=== PATIENT | female | born 1950 | race Caucasian/White ===

== ENCOUNTER 2017-02-16 06:50 | Observation (INO) | payer MEDICARE, OTHER ==
[2017-02-12 13:17] LABS: HEMATOCRIT 43.9 % (36.0-48.0); HEMOGLOBIN 14.6 g/dL (12.0-16.0)
[2017-02-12 13:30] LABS: A/G RATIO 0.9 (0.7-1.9); ALBUMIN 3.7 G/DL (3.5-5.0); ALKALINE PHOSPHATASE 100 U/L (45-117); BUN (BLOOD UREA NITROGEN) 13 MG/DL (6-23); CALCIUM, SERUM 9.5 MG/DL (8.5-10.4); CHLORIDE, SERUM 104 MMOL/L (96-112); CO2 (CARBON DIOXIDE) 31 MMOL/L (24-34); CREATININE 0.67 MG/DL (0.55-1.02); GFR AFRICAN AMERICAN 106 ML/MIN (>=60); GFR NON AFRICAN AMERICAN 92 ML/MIN (>=60); GLOBULIN 4.1 G/DL (2.5-4.1); GLUCOSE, SERUM 99 MG/DL (60-99); POTASSIUM, SERUM 5.8 MMOL/L (3.5-5.3); SGOT(AST) 19 U/L (5-40); SGPT(ALT) 16 U/L (5-65); SODIUM, SERUM 140 MMOL/L (135-148); TOTAL BILIRUBIN 0.5 MG/DL (0-1.2); TOTAL PROTEIN 7.8 G/DL (6.0-8.5)
[~2017-02-16] VITALS: Ht 167.6 cm; Wt 59.0 kg
--- NOTE | ~2017-02-16 | OP ---
Record Of Operation [facility] [address] [place]. [address] NAME: JANNETTE RAMIREZ : 50 STATUS : ADM Ana PAT#: [id number] AGE: 66 ADM/REG DATE : 02/16/17 MR#: [id number] REPORT SERV DATE: 02/16/17 DICTATED BY: JOHN FELIPE DATE: 02/16/17 REPORT STATUS : Draft TRANSCRIBED BY: MODAnca DATE: 02/16/17 DATE OF PROCEDURE: 02/16/2017 PREOPERATIVE DIAGNOSIS: Right thyroid nodules with suspicious findings on fine needle aspiration biopsy. POSTOPERATIVE DIAGNOSIS: Right thyroid nodules with suspicious findings on fine needle aspiration biopsy. PROCEDURE: Right thyroid lobectomy. RESIDENT SURGEON: Conner Morel M.D. ANESTHESIA: General. COMPLICATIONS: None. BLOOD LOSS: Minimal. SPECIMENS: Right thyroid lobe. DRAINS: None. FINDINGS: Right thyroid lobe frozen section was performed. The index lesion showed no evidence of malignancy. INDICATION FOR PROCEDURE: Jannette Ramirez is a 66-year-old woman who presented with a history of right thyroid nodules that have been followed. It had grown from 16 mm largest one to 22 mm. Fine-needle aspiration biopsy was performed and showed suspicion for neoplasm. Risks and benefits of thyroid lobectomy versus thyroidectomy were discussed with the patient including bleeding, infection, injury to the recurrent laryngeal nerve causing hoarseness, risks of anesthesia, heart attack, stroke, DVT, PE. She understood and wished to proceed. DESCRIPTION OF PROCEDURE: After informed consent was obtained, the patient was taken to the operating room and placed on the operative table in supine position. General endotracheal anesthesia was induced by anesthesia without incident. A time-out was performed verifying the correct patient, position, procedure, and doses of preoperative antibiotics. A shoulder roll was placed. The patient was padded and secured to the table. She was then placed in modified beach chair position. The neck and upper chest were prepped and draped in sterile fashion. A transverse skin incision made in the natural skin crease with a knife and electrocautery used to dissect through the platysma. Subplatysmal flaps were raised superiorly and inferiorly. The strap muscles were in the midline. The right strap muscle was elevated off the thyroid, a plane created with electrocautery. The superior pole of the thyroid was then mobilized. The superior thyroid vessels were identified. These were then ligated with 2-0 silk followed by a medium clip and LigaSure. Record Of Operation [facility] [address] [place]. [address] NAME: JANNETTE RAMIREZ : 50 STATUS : ADM Ana PAT#: [id number] AGE: 66 ADM/REG DATE : 02/16/17 MR#: [id number] REPORT SERV DATE: 02/16/17 DICTATED BY: JOHN FELIPE DATE: 02/16/17 REPORT STATUS : Draft TRANSCRIBED BY: [place]ON DATE: 02/16/17 The superior parathyroid gland was identified and protected throughout the dissection. The middle thyroid vein was then ligated with LigaSure. The thyroid was mobilized medially. The recurrent laryngeal nerve was identified. The right inferior parathyroid gland was identified and its blood supply was preserved. The inferior thyroid artery was then divided between clips again preserving the blood flow to the superior and the inferior parathyroid glands. The thyroid was mobilized medially. The recurrent laryngeal nerve was protected throughout on the left posteriorly. The isthmus of the thyroid was divided with the LigaSure. The specimen was sent down to pathology for frozen section which showed the index lesion with no evidence of malignancy. The wound was inspected. There was good hemostasis. The recurrent laryngeal nerve appeared intact. The neck was irrigated. Again, there was good hemostasis. The strap muscles were then reapproximated in the midline using 3-0 Vicryl. Platysma closed with interrupted 4-0 Vicryl. Skin closed with 4-0 Monocryl. Sterile dressings of Telfa and tape were placed. The patient tolerated the procedure and taken to postanesthesia care unit in satisfactory condition. DICTATED BY: MD PASTOR Quevedo/TRENTON John Felipe M.D. / [id number] CC: Dunia Erickson MD
[~2017-02-16 06:50] MED LIST: CALTRA600D PO; HYZAAR1 TAB PO; IPRA17AE INH; RANITIDINE300 MG PO; SINGULAIR1 PO
[2017-02-17] MEDS ORDERED: PCET PO (07:45)
== END 2017-02-17 08:52 | disposition home or self-care (01) ==
LOC: ENRESERVDT → ENRESERVTM → ENRESERV → SDC 06:50 → 4SO 13:22
PROVIDERS: Specialist
PROC: 0GTH0ZZ Resection of Right Thyroid Gland Lobe, Open Approach (ICD-10-PCS; principal; 2017-02-16 08:30)
DX: E04.2 Nontoxic multinodular goiter (principal); I10 Essential (primary) hypertension; J47.9 Bronchiectasis, uncomplicated; Z86.19 Personal history of other infectious and parasitic diseases; Z79.52 Long term (current) use of systemic steroids; Z79.899 Other long term (current) drug therapy; Z98.890 Other specified postprocedural states
CPT/HCPCS: 36415; 80053; 84132; 85014; 85018; 88307; 88333; 88334; 93005; 94640; A9270-GY; G0378; J0690; J1170; J2250; J2405; J2710; J3010